=== PATIENT | male | born 1940 | race Caucasian/White ===

== ENCOUNTER 2019-01-13 17:29 | Emergency (ER) | payer MEDICARE, OTHER ==
--- NOTE | 2019-01-13 17:47 | Emergency Department Record ---
History of Present Illness - General Stated Complaint: COUGH,SORE THROAT -COLD SYMPTOM Time Seen by Provider: 01/13/19 17:43 Source: Patient Mode of Arrival: Ambulatory Limitations: No limitations - History of Present Illness Initial Comments: 78 yo male presents to ED for evaluation of congestion, sore throat symptoms for the past 2-3 days. Patient denies fever, productive cough symptoms. Patient denies urinary symptoms or abdominal pain symptoms. Patient denies health problems at his baseline. MD Complaint: Nasal congestion, Sore throat Onset/Timin -: Days(s) Severity: Moderate Quality: Aching Consistency: Constant Improves With: Nothing Worsens With: Nothing Associated Symptoms: Denies other symptoms Treatments Prior to Arrival: None - Related Data Previous Rx's Medication Instructions Recorded Albuterol Sulfate [Proair Hfa] 1 - 2 puff IH .EVERY 4-6 HOURS PRN 02/24/15 #1 inhaler Amoxicillin [Amoxil] 875 mg PO BID #19 tab 01/13/19 Allergies Allergy/AdvReac Type Severity Reaction Status Date / Time NO KNOWN DRUG ALLERGY Allergy PT UNSURE Uncoded 01/13/19 18:15 OF REACTION Review of Systems Constitutional: Denies: Chills, Fever, Malaise Eyes: Denies: Eye discharge, Eye pain ENT: Reports: Congestion, Throat pain. Denies: Ear pain, Epistaxis Respiratory: Denies: Cough, Dyspnea Cardiovascular: Denies: Chest pain, Dyspnea on exertion Endocrine: Denies: Fatigue, Heat or cold intolerance Gastrointestinal: Denies: Abdominal pain, Nausea, Vomiting Genitourinary: Denies: Incontinence, Retention Musculoskeletal: Denies: Arthralgia, Back pain, Gout, Joint swelling Skin: Denies: Bruising, Change in color Neurological: Denies: Abnormal gait, Confusion, Headache, Tingling, Tremors Psychiatric: Denies: Anxiety Hematological/Lymphatic: Denies: Anemia, Blood Clots Physical Exam - General General Appearance: Alert, Oriented x3, Cooperative, Mild distress Limitations: No limitations - Head Head exam: Atraumatic, Normocephalic, Normal inspection Head exam detail: negative: Abrasion, Contusion, Lucas's sign, General tenderness, Hematoma, Laceration - Eye Eye exam: Normal appearance. negative: Conjunctival injection, Periorbital swelling, Periorbital tenderness, Scleral icterus - ENT Ear exam: negative: Auricular hematoma, Auricular trauma Nasal Exam: negative: Active bleeding, Discharge, Dried blood, Foreign body, Sinus tenderness Mouth exam: Other (MIld thrush present to the tongue). negative: Drooling, Laceration, Muffled voice, Tongue elevation Throat exam: Tonsillar erythema. negative: Tonsillomegaly, R peritonsillar mass , L peritonsillar mass - Neck Neck exam: Normal inspection. negative: Meningismus, Tenderness - Respiratory Respiratory exam: Normal lung sounds bilaterally. negative: Rhonchi, Stridor, Wheezes - Cardiovascular Cardiovascular Exam: Regular rate, Normal rhythm, Normal heart sounds - GI/Abdominal GI/Abdominal exam: Soft. negative: Distended, Rebound, Rigid, Tenderness - Rectal Rectal exam: Deferred - exam: Deferred - Extremities Extremities exam: Normal inspection. negative: Pedal edema, Tenderness - Back Back exam: Denies: CVA tenderness (R), CVA tenderness (L) - Neurological Neurological exam: Alert, Normal gait, Oriented X3 - Psychiatric Psychiatric exam: Normal affect, Normal mood - Skin Skin exam: Normal color. negative: Abrasion Type of lesion: negative: abrasion Course Vital Signs 01/13/19 17:42 Temperature 97.9 F Pulse Rate [ 81 Pulse Ox Probe] Respiratory 20 Rate Blood Pressure 153/61 [Left Arm] Pulse Ox 99 - Reevaluation(s) Reevaluation #1: 01/13/19 17:46 Patient was seen and examined, unable to obtain strep swab due to patient compliance. Will obtain influenza swab, if negative, likely treat for possible pharyngitis. Reevaluation #2: 01/13/19 18:22 Influenza is negative on examination, will treat with amoxicillin as directed. I did discuss the possibility of the patient's symptoms being viral in nature, and that his symptoms may not improve with Amoxicillin. Patient verbalizes understanding of these instructions, appears stable for discharge at this time. Disposition Disposition: Discharge Clinical Impression: Pharyngitis Qualifiers: Pharyngitis/tonsillitis etiology: unspecified etiology Qualified Code(s): J02.9 - Acute pharyngitis, unspecified Disposition: Home, Self-Care Condition: (2) Stable Instructions: Pharyngitis (ED) Additional Instructions: Return to ED if your symptoms worsen or if you have any concerns. Amoxicillin as directed. Follow-up with your family doctor in 3-5 days as directed. Prescriptions: Amoxicillin [Amoxil] 875 mg PO BID #19 tab Time of Disposition: 18:24 Quality - Quality Measures Quality Measures: N/A - Blood Pressure Screening Does Patient Have Any of the Following: Active Dx of HTN Blood Pressure Classification: Hypertensive Reading Systolic Measurement: 153 Diastolic Measurement: 61 Screening for High Blood Pressure: Patient Exclusion, Hx of HTN [[id number]]
[2019-01-13 18:20] LABS: INFLUENZA A NEGATIVE (NEGATIVE); INFLUENZA B NEGATIVE (NEGATIVE)
== END 2019-01-13 18:35 | disposition home or self-care (01) ==
LOC: ER 17:29
DX: J02.9 Acute pharyngitis, unspecified (principal); R05 Cough; I10 Essential (primary) hypertension
CPT/HCPCS: 87400; 99282

== ENCOUNTER 2019-12-05 09:07 | Day surgery (SDC) | payer MEDICARE, OTHER ==
[2019-12-05] MEDS ORDERED: PROPOFOL 10 MG/ML VIAL IV ONE (09:08)
[2019-12-05] MEDS ORDERED: LIDOCAINE 2% MDV (20MG/ML) 20ML VIAL IV ONE (09:08)
[2019-12-05] MEDS ORDERED: 0.9 % SODIUM CHLORIDE 1000ML 500 ML IV ONE (10:04)
[2019-12-05] MEDS ORDERED: LIDOCAINE 2% MDV (20MG/ML) 20ML VIAL INJ ONE (11:03)
[2019-12-05] MEDS ORDERED: EPINEPHRINE 1 MG/ML AMPUL IO ONE (11:03)
[2019-12-05] MEDS ORDERED: NEOM/BACI/POLY/HC 3.5 GM OPTH OINT OPTH ONE (11:03)
[2019-12-05] MEDS ORDERED: BRIMONIDINE TARTRATE 0.2% OPTHALMIC DROPS OP ONE (11:03)
[2019-12-05] MEDS ORDERED: TETRACAINE HCL 0.5% OPTH 2ML SOLU OPTH ONE (11:03)
[2019-12-05] MEDS ORDERED: TRIAMCINOLONE ACET 40 MG/ML VIAL IM ONE ×2 (11:04→11:21)
[2019-12-05] MEDS ORDERED: TIMOLOL MALEATE 0.5% 5ML BTL OPTH ONE (11:04)
--- NOTE | 2019-12-06 09:28 | OP NOTE CHAMES ---
DATE OF PROCEDURE: 12/05/2019 PREOPERATIVE DIAGNOSIS: Nuclear sclerotic cataract, left eye. POSTOPERATIVE DIAGNOSIS: Nuclear sclerotic cataract, left eye. OPERATION: Phacoemulsification of cataractous lens with implantation of intraocular lens. LENS IMPLANT USED: [employer] & Nathanael Model PCB00 + 20.5 diopters. COMPLICATIONS: None. PROCEDURE IN DETAIL: Following a retrobulbar and facial block, the patient was prepped and draped in the usual fashion for eye surgery. A lid speculum was placed in the left eye after which a 2.4 mm tunnel wound was placed at the temporal limbus and dissected into clear cornea. A paracentesis was placed at 2 oclock hours to the left and right of the initial incision and the chamber deepened with Viscoelastic. The keratome was then used to enter the anterior chamber after which the continuous circular capsulorrhexis was accomplished without difficulty using a bent needle and a Utrata forceps. Hydrodissection and hydrodelineation of the lens was performed after which the nucleus of the lens was removed using the Phaco handpiece in the [id number] technique. The residual cortical material was irrigated and aspirated from the eye after which the bag and chamber were re-examined. The bag was re-inflated with Viscoelastic and the intraocular lens injected into the capsular bag where it centered well. The Viscoelastic was then copiously irrigated and aspirated from the eye after which the temporal tunnel wound and paracentesis were hydrated and the wounds were examined. They were noted to be watertight. The lid speculum was removed from the eye and the eye patched and shielded. The patient was transferred to the recovery room in satisfactory condition and given an appointment to be reexamined in the clinic later today or as directed by Dr. Carson. JOB [facility]BER: [id number] [facility]
== END 2019-12-05 11:55 | disposition home or self-care (01) ==
LOC: SUR 09:07
PROVIDERS: ATTEND Ophthalmology
DX: H25.12 Age-related nuclear cataract, left eye (principal); I10 Essential (primary) hypertension; I50.9 Heart failure, unspecified; N40.0 Benign prostatic hyperplasia without lower urinary tract symptoms; I48.91 Unspecified atrial fibrillation; Z79.01 Long term (current) use of anticoagulants; M10.9 Gout, unspecified; J44.9 Chronic obstructive pulmonary disease, unspecified; G47.33 Obstructive sleep apnea (adult) (pediatric); Z95.810 Presence of automatic (implantable) cardiac defibrillator; Z95.0 Presence of cardiac pacemaker
CPT/HCPCS: 66984; 00142; J3301; J0171; J7030

== ENCOUNTER 2019-12-19 08:48 | Day surgery (SDC) | payer MEDICARE ==
[2019-12-19] MEDS ORDERED: PROPOFOL 10 MG/ML VIAL IV ONE (08:49)
[2019-12-19] MEDS ORDERED: LIDOCAINE 2% MDV (20MG/ML) 20ML VIAL IV ONE (08:49)
[2019-12-19] MEDS ORDERED: 0.9 % SODIUM CHLORIDE 1000ML 500 ML IV ONE (09:56)
[2019-12-19] MEDS ORDERED: LIDOCAINE 2% MDV (20MG/ML) 20ML VIAL INJ ONE (10:56)
[2019-12-19] MEDS ORDERED: TETRACAINE HCL 0.5% OPTH 2ML SOLU OPTH ONE (10:56)
[2019-12-19] MEDS ORDERED: EPINEPHRINE 1 MG/ML AMPUL IO ONE (10:57)
[2019-12-19] MEDS ORDERED: BRIMONIDINE TARTRATE 0.2% OPTHALMIC DROPS OP ONE (10:57)
[2019-12-19] MEDS ORDERED: NEOM/BACI/POLY/HC 3.5 GM OPTH OINT OPTH ONE (10:57)
[2019-12-19] MEDS ORDERED: TIMOLOL MALEATE 0.5% 5ML BTL OPTH ONE (10:57)
[2019-12-19] MEDS ORDERED: TRIAMCINOLONE ACET 40 MG/ML VIAL IM ONE ×2 (10:57→11:11)
[2019-12-19] MEDS ORDERED: CIPROFLOXACIN HCL 0.0015 GM, PHENYLEPHRINE HCL 0.05 GM, KETOROLAC TROMETHAMINE 0.000625 GM MC ONE ×5 (14:45)
--- NOTE | 2019-12-20 07:15 | OP NOTE CHAMES ---
DATE OF PROCEDURE: 12/19/2019 PREOPERATIVE DIAGNOSIS: Nuclear sclerotic cataract, right eye. POSTOPERATIVE DIAGNOSIS: Nuclear sclerotic cataract, right eye. OPERATION: Phacoemulsification of cataractous lens with implantation of intraocular lens. LENS IMPLANT USED: N[employer] & Nathanael Model PCB00 + 21.0 diopters. COMPLICATIONS: None. PROCEDURE IN DETAIL: Following a retrobulbar and facial block, the patient was prepped and draped in the usual fashion for eye surgery. A lid speculum was placed in the right eye after which a 2.4 mm tunnel wound was placed at the temporal limbus and dissected into clear cornea. A paracentesis was placed at 2 oclock hours to the left and right of the initial incision and the chamber deepened with Viscoelastic. The keratome was then used to enter the anterior chamber after which the continuous circular capsulorrhexis was accomplished without difficulty using a bent needle and a Utrata forceps. Hydrodissection and hydrodelineation of the lens was performed after which the nucleus of the lens was removed using the Phaco handpiece in the [id number] technique. The residual cortical material was irrigated and aspirated from the eye after which the bag and chamber were re-examined. The bag was re-inflated with Viscoelastic and the intraocular lens injected into the capsular bag where it centered well. The Viscoelastic was then copiously irrigated and aspirated from the eye after which the temporal tunnel wound and paracentesis were hydrated and the wounds were examined. They were noted to be watertight. The lid speculum was removed from the eye and the eye patched and shielded. The patient was transferred to the recovery room in satisfactory condition and given an appointment to be reexamined in the clinic later today or as directed by Dr. Carson. [facility]BER: [id number] [facility]
== END 2019-12-19 11:45 | disposition home or self-care (01) ==
LOC: SUR 08:48
PROVIDERS: ATTEND Ophthalmology
DX: H25.11 Age-related nuclear cataract, right eye (principal); J44.9 Chronic obstructive pulmonary disease, unspecified; Z95.810 Presence of automatic (implantable) cardiac defibrillator; N40.0 Benign prostatic hyperplasia without lower urinary tract symptoms; Z79.01 Long term (current) use of anticoagulants; M10.9 Gout, unspecified
CPT/HCPCS: J0171; J3301; J7030